=== PATIENT | male | born 1950 | race Caucasian/White ===

== ENCOUNTER 2024-05-26 11:39 | Outpatient (CLI) | payer OTHER, SELFPAY ==
--- NOTE | ~2024-05-26 | XR_ITS ---
EXAM: XR hip LT min 2V DATE: 05/26/2024 12:00 HISTORY: left hip pain with decreased ROM . COMPARISON: None available. FINDINGS: Normal mineralization. No fracture or dislocation. No lytic or blastic lesion. Severe supe rior joint space narrowing in the left hip, with extensive subchondral sclerosis and moderate subchon dral cyst formation. Mild remodeling of the femoral head. No erosion or periosteal change. Soft tissu es within normal limits. IMPRESSION: Severe left hip osteoarthritis. Reviewed, dictated and finalized at location K.
--- NOTE | ~2024-05-26 | XR_ITS ---
EXAM: XR lumbar spine 2-3V DATE: 05/26/2024 11:59 HISTORY: left lower back pain with left hip pain . COMPARISON: None available. FINDINGS: 5 nonrib-bearing lumbar-type vertebral bodies. Pedicles intact. 6 mm retrolisthesis at L1- 2. 2 mm anterolisthesis at L5-S1. Vertebral body heights preserved. Severe disc space narrowing with marginal osteophytosis at L1-2 and L5-S1, with mild narrowing at the remaining lumbar levels. Moderat e lower lumbar facet hypertrophy and sclerosis. Interspinous narrowing at nearly all lumbar levels. N o fracture or dislocation. IMPRESSION: Multilevel severe degenerative disc disease. Grade 1 listheses at L1-2 and L5-S1. Multile wagner moderate facet arthropathy with interspinous narrowing. Reviewed, dictated and finalized at location K. IMPRESSION: Multilevel severe degenerative disc disease. Grade 1 listheses at L 1-2 and L5-S1. Multilevel moderate facet arthropathy with interspinous narrowin g.
== END 2024-05-26 11:40 | disposition home or self-care (01) ==
LOC: MICIMG 11:40
PROVIDERS: PCP Family Medicine Adolescent Medicine; Visit Provider Family Medicine Adolescent Medicine
DX: M51.360 Other intervertebral disc degeneration, lumbar region with discogenic back pain only (principal); M43.17 Spondylolisthesis, lumbosacral region; M43.16 Spondylolisthesis, lumbar region; M47.816 Spondylosis without myelopathy or radiculopathy, lumbar region; M17.12 Unilateral primary osteoarthritis, left knee; M25.562 Pain in left knee
CPT/HCPCS: 72100; 73502; 73562

== ENCOUNTER 2024-07-14 10:10 | Outpatient (CLI) | payer OTHER, SELFPAY ==
--- NOTE | 2024-07-14 10:42 | ECG_ITS ---
Test Date: 2024-07-14 10:52:13 Measurements Intervals [place] Rate: 65 P: 17 VA: 182 QRS: -6 QRSD: 90 T: -4 QT: 398 QTc: 416 Interpretive Statements SINUS RHYTHM INCOMPLETE RIGHT BUNDLE BRANCH BLOCK NONSPECIFIC ST AND T WAVE ABNORMALITY No previous ECG available for comparison Electronically Signed On 07-14-2024 14:45:03 CLOCK AND WATCH HANDS PAINTER by Naya Mathews M.D.
[2024-07-14 11:04] LABS: Albumin Level 4.2 g/dL (3.5-5.1); Estimated Glomerular Filt Rate > 60
== END 2024-07-14 10:11 | disposition home or self-care (01) ==
PROVIDERS: PCP Family Medicine Adolescent Medicine; Visit Provider Orthopaedic Surgery
DX: M16.12 Unilateral primary osteoarthritis, left hip (principal); I10 Essential (primary) hypertension; R94.31 Abnormal electrocardiogram [ECG] [EKG]
CPT/HCPCS: 36415; 82040; 82565; 93005

== ENCOUNTER 2024-09-15 13:45 | Outpatient (CLI) | payer OTHER, SELFPAY ==
--- OUTSIDE RECORDS SUMMARY | 2024-09-15 13:52 | XMS_ITS | Clinical Summary ---
Author Organization [address] Address [address] [place] [phone] Care Team Providers Care Bookkeeping Teacher Name Role Phone Saúl Michele MD Primary Care Prov ider Allergies No known active allergies Medications esomeprazole DR (NexIUM) 40 mg capsule Take 1 capsule (40 mg total) by mouth 2 (two) times a day 4 Active meloxicam (MOBIC) 15 mg tablet 15 MG ORALLY DAILY 4 Active albuterol-budes onide 90-80 mcg/actuation HFA aerosol inhaler Inhale Active amLODIPine (NORVASC) 5 mg tablet Take 1 tablet (5 mg total) by mouth daily Active atorvastatin (LIPITOR) 10 mg tablet Take 1 tablet (10 mg total) by mouth daily Active azelastine-flut icasone 137-50 mcg/spray spray,non-aeros ol Administer into affected nostril(s) Active fluticasone propionate (FLONASE) 50 mcg/actuation nasal spray Administer 1 spray into each nostril daily Active aspirin 325 mg enteric coated tablet Take 1 tablet (325 mg total) by mouth daily Active magnesium oxide (MAG-OX) 250 mg (150.8 mg elemental) tabletIndicatio ns:hypomagnesem ia 1 tablet (250 mg total) daily Active fexofenadine (NAZIA) 180 mg tablet Take 1 tablet (180 mg total) by mouth daily Active clobetasoL-emol lient 0.05 % topical foam Apply topically 2 (two) times a day Active benzonatate (TESSALON) 200 mg capsuleIndicati ons:COVID-19 Take 1 capsule (200 mg total) by mouth 3 (three) times a day as needed for cough 30 capsule 06/13/202 4 Active Active Problems No known active problems Social History Tobacco Use Types Packs/Day Years Used Date Smoking Tobacco: Never Assessed Sex and Gender Information Value Date Recorded Sex Assigned at Not on file Legal Sex Male 5:04 PM CDT Gender Identity Not on file Sexual Orientation Not on file Obstetrics History Last Filed Vital Signs Vital Sign Reading Time Taken Comments Blood Pressure 122/70 01/08/2024 7:08 PM CDT Pulse 114 01/08/2024 7:08 PM CDT Temperature 37.5 C (99.5 F) 01/08/2024 7:08 PM CDT Respiratory Rate 20 01/08/2024 7:08 PM CDT Oxygen Saturation 98% 01/08/2024 7:08 PM CDT Inhaled Oxygen Concentration - - Weight 84.8 kg (187 lb) 01/08/2024 7:08 PM CDT Height 175.3 cm (5' 9 ) 01/08/2024 7:08 PM CDT Body Mass Index 27.62 01/08/2024 7:08 PM CDT Plan of Treatment Health Maintenance Due Date Last Done Comments Colon Cancer Screening-Colonoscopy 1950 Depression Screening 1948 Fall Risk Assessment 1948 Hepatitis C Screening 1948 DTaP/Tdap/Td Vaccine (1 - Tdap) 10/18/1959 Hepatitis B Screening 1966 Zoster Vaccine (1 of 2) 1998 Abdominal Aortic Aneurysm (AAA) Screen 2013 Pneumococcal vaccine 65+ (1 of 1 - PCV) 2013 Well Visit 65+ 2013 Influenza Vaccine (#1) 2024 05/26/2023 Insurance [facility] Care Teams Bookkeeping Teacher Relationship Specialty Start Date End Date Saúl Michele MD [address] [place] [address] PCP - General Family Medicine 01/08/24
--- OUTSIDE RECORDS SUMMARY | 2024-09-15 13:52 | XMS_ITS | Referral Summary ---
Author Organization [address] Address [address] [place] [phone] Care Team Providers Care Shower Screen Installer Name Role Phone Saúl Michele MD Primary [...] on file Sexual Orientation Not on file Last Filed Vital Signs Vital Sign Reading [...] 01/08/2024 7:08 PM CDT Plan of Treatment Not on file Insurance [facility] Care Teams Shower Screen Installer Relationship Specialty Start Date End Date Saúl Michele MD [address] [place] [address] PCP - General Family Medicine 01/08/24
[2024-09-15 15:22] LABS: Basophils Absolute Auto 0.1 K/mm3 (0.0-0.1); Eosinophils Absolute Auto 0.2 K/mm3 (0-0.3); Eosinophils Percent Auto 1.7 % (0-4.4); Hematocrit 47.7 % (42.0-52.0); Hemoglobin 15.5 g/dL (14.0-18.0); Immature Granulocyte Absolute 0.03 K/mm3 (0.00-0.031); Immature Granulocyte Percent A 0.3 % (0-0.5); Lymphocytes Absolute Auto 3.13 K/mm3 (0.9-3.2); Lymphocytes Percent Auto 31.4 % (18.3-44.2); Mean Corpuscular HGB Conc 32.5 g/dl (32-36); Mean Corpuscular Hemoglobin 31.2 pg (26-34); Mean Platelet Volume 9.9 fl (7.4-10.4); Monocytes Absolute Auto 0.8 K/mm3 (0.1-0.6); Neutrophils Absolute Auto 5.7 K/mm3 (1.3-6.7); Neutrophils Percent Auto 57.6 % (45.5-73.1); Platelet Count Result 255 k/mm3 (150-375); Red Blood Count 4.97 M/mm3 (4.6-6.20); Red Cell Distribution Width 12.6 % (11.5-14.5)
[2024-09-15 15:32] LABS: Urine Cotinine NEGATIVE
[2024-09-15 15:48] LABS: Albumin Level 4.3 g/dL (3.5-5.1); Estimated Glomerular Filt Rate > 60; Glucose 96 mg/dL (65-110)
[2024-09-15 16:45] LABS: MRSA (PCR) NOT DETECTED (NOT DETECTE)
[2024-09-15 19:07] LABS: Hemoglobin A1C 5.8 % (<5.7)
== END 2024-09-15 13:46 | disposition home or self-care (01) ==
PROVIDERS: PCP Family Medicine Adolescent Medicine; Visit Provider Orthopaedic Surgery
DX: Z01.812 Encounter for preprocedural laboratory examination (principal); M16.12 Unilateral primary osteoarthritis, left hip
CPT/HCPCS: 80307; 82040; 82565; 82947; 83036; 85025; 87641

== ENCOUNTER 2024-10-07 00:19 | Day surgery (SDC) | payer OTHER, SELFPAY ==
--- NOTE | 2024-09-15 13:46 | PC.NURSE ---
Report to the Outpatient Waiting Room, entrance under the green pavilion located off [facility], at time _8 AM on date __10/07/24 . Planned Procedure Time: __10 AM .? Time changes happen often and if your time is changed the preop area will call you the afternoon before. - You and your visitor will be asked to self-screen and do not enter if you have any COVID symptoms. Please call surgeon if you need to reschedule. - A mask is optional within the hospital at this time. Patients may have clear liquids (water, carbonated beverages, clear teas, apple juice) until 3 hours prior to surgery ( 7 AM) with a maximum of 20 ounces. - No food from midnight until time of surgery and no smoking, or chewing tobacco (or any form of nicotine). No chewing gum, candy or mints. - Take only the following medications with a SIP of water on the morning of surgery: ___INHALER IF NEEDED DO NOT STOP ANY OF YOUR OTHER PRESCRIPTION MEDICATIONS PRIOR TO SURGERY EXCEPT THE FOLLOWING Hold all vitamins and supplements for 3 days per anesthesiologist. Medications to discontinue per physician __PT STATES HOLD_ASPIRIN , MELOXICAM___AND ALL VITAMINS AND SUPPLEMENTS 7 DAYS PRE OP PER DR HOUSE MAY TAKE TYLENOL IF NEEDED FOR PAIN Date to take last dose____09/29/24 Please no make-up, nail faroese, hairspray, perfume, deodorant, or body powder the day of surgery.? No jewelry (including any body piercings) or valuables the day of surgery, leave them at home.? Please take a shower or bath the night before, or the morning of, surgery with an antibacterial soap.? Wear comfortable, loose fitting clothing.? Children are encouraged to wear pajamas. - Jewelry must be removed prior to entering the operating room.? Rings and piercings that are not removed may be cut off. - The hospital will not accept responsibility for valuables.? - Please leave all valuables, including medications, at home the day of surgery. If you are going home after surgery, a licensed tow car driver must drive you home.? - NO public transportation without another adult if you receive anesthesia. - We recommend that an adult stay with you for 24 hours following discharge. - We also recommend that you do not drive, make important decision, drink alcoholic beverages, or take any drugs that were not prescribed by your health care provider for at least 24 hours after your discharge time. Follow any additional instructions given to you from your surgeon. VERBAL AND WRITTEN instructions given to __PATIENT AND WIFE and asked if any additional questions and then verbalized understanding. Patient advised to call surgeon office or pre surgery nurse liaison [phone] if any additional questions.
[2024-09-15 13:53] VITALS: BMI 28.0
[2024-09-15 14:43] VITALS: BP 176/81; PULSE 88; RESP 18; TEMP 36.8; O2SAT 100
[2024-10-07] VITALS (14 sets, daily range): BP systolic 121–160; BP diastolic 64–91; PULSE 68–95; RESP 12–20; TEMP 36.4–36.9; O2SAT 95–100; BMI 27.0
--- NOTE | ~2024-10-07 | XR_ITS ---
EXAMINATION: XR hip LT min 2V DATE: 10/07/2024 13:49 INDICATION: Total left hip arthroplasty. Postop. TECHNIQUE: 2 views of left hip were obtained. COMPARISON: Left hip radiographs 09/13/2024 FINDINGS: There is a total left hip arthroplasty in near-anatomic alignment. No fracture. There is ga s in the knee joint and soft tissues, consistent with recent surgery. IMPRESSION: 1. Total left hip arthroplasty in near-anatomic alignment. Reviewed, dictated and finalized at location B.
--- OUTSIDE RECORDS SUMMARY | 2024-10-07 00:23 | XMS_ITS | Referral Summary ---
Author Organization [address] Address [address] [place] [phone] Care Team Providers Care Licensed Optical Dispenser Name Role Phone Saúl Michele MD Primary [...] Plan of Treatment Not on file Insurance [facility] Care Teams Licensed Optical Dispenser Relationship Specialty Start Date End Date Saúl Michele MD [address] [place] [address] PCP - General Family Medicine 01/08/24
--- OUTSIDE RECORDS SUMMARY | 2024-10-07 00:23 | XMS_ITS | Clinical Summary ---
Author Organization [address] Address [address] [place] [phone] Care Team Providers Care Rehabilitation Physician Name Role Phone Saúl Michele MD Primary [...] - Tdap) 10/18/1959 Hepatitis B Screening 1966 Pneumococcal vaccine 65+ (1 of 1 - PCV) 1998 Zoster Vaccine (1 of 2) 1998 Abdominal Aortic Aneurysm (AAA) Screen 2013 Well Visit 65+ 2013 Influenza Vaccine (#1) 2024 05/26/2023 Insurance [facility] Care Teams Rehabilitation Physician Relationship Specialty Start Date End Date Saúl Michele MD [address] [place] [address] PCP - General Family Medicine 01/08/24
[2024-10-07] MEDS: ACETAMINOPHEN 500 MG TABLET 1000 MG PO (08:47)
[2024-10-07] MEDS: LACTATED RINGERS 1,000 ML 30 ML IV CONT ×2 (08:47→13:15)
--- NOTE | 2024-10-07 09:35 | P.PNAN_ITS ---
Anes - Initial Pre Proc Eval Procedure: Operation Date: 10/07/24 10:00 Proposed Procedures p Left Total Hip Arthroplasty - Iglesia To MD Date/Time: 10/07/24 09:35 Surgeon: Iglesia To MD Pre Op Diagnosis: primary oa left hip Patient Data Age: 73 Gender: M Height: 1.75 m Weight: 83 kg Last Vital Signs Temp 36.5 C 10/07/24 09:22 Pulse 73 10/07/24 09:22 Resp 16 10/07/24 09:22 BP 147/72 H 10/07/24 09:22 Pulse Ox 99 10/07/24 09:22 O2 Del Method Room Air 10/07/24 09:22 Allergies Allergy/AdvReac Type Severity Reaction Status Date / Time No Known Allergies Allergy Verified 10/07/24 09:07 Home Medications ?Medication ?Instructions ?Recorded ?Confirmed ?Type aspirin 325 mg tablet 325 mg PO .4PM 12/15/20 10/07/24 History atorvastatin 10 mg tablet 10 mg PO .4PM 12/15/20 10/07/24 History azelastine 137 mcg-fluticasone 50 1 spray intranasal .PRN 12/15/20 10/07/24 History mcg spray,susp-NaCl 0.9% spray nasal fluticasone propionate 50 2 spray intranasal DAILY 03/12/22 10/07/24 History mcg/actuation nasal spray,suspension (Allergy Relief (fluticasone)) clobetasol-emollient 0.05 % 1 applic topical .PRN 07/07/23 09/15/24 History topical foam fexofenadine 60 mg tablet 180 mg PO .4PM 07/07/23 10/07/24 History magnesium 250 mg tablet 250 mg PO .4PM 07/07/23 10/07/24 History bagyoshf-hac-kaaoe acid 0.4 1 tablet PO .4PM 07/07/23 10/07/24 History mg-lycopene 300 mcg-lutein 250 mcg tablet (Complete Multivitamin Adult 50 Plus) albuterol 90 mcg/actuation aerosol 90 mcg inhalation QID PRN 05/26/24 10/07/24 History inhaler shortness of breath amlodipine 5 mg tablet 10 mg PO .4PM 08/10/24 10/07/24 History esomeprazole magnesium 40 mg 80 mg PO .4PM 09/15/24 10/07/24 History capsule,delayed release meloxicam 15 mg tablet 15 mg PO .4PM 09/15/24 10/07/24 History vit A 9,650 unit-vit C 195 mg-vit 1 cap PO .4PM 09/15/24 10/07/24 History E 95 ouur-mcbpug-efph-zn-copy camera operator capsule oxycodone-acetaminophen 5 mg-325 1 - 2 tablet PO Q4-6H PRN pain 7 10/07/24 Rx mg tablet days #30 tabs Laboratory Tests 10/07/24 08:37 Blood Type O Positive Antibody Screen Negative Patient hx anesthesia problems: none Family hx anesthesia problems: none Results Review: All pre-operative results and documents have been reviewed as part of the pre- operative evaluation. [facility] Past Medical History Medical History (Updated 10/07/24 @ 09:36 by Prince Rosen MD) GERD (gastroesophageal reflux disease) Hypertension Overweight (BMI 25.0-29.9) Rectal polyp (~2010) Gastric polyp History of colon polyps Surgical History Surgical History H/O hernia repair (~1950) Family History Family History Father Alzheimers disease Dementia Malignant neoplasm of prostate Mother Dementia Hypertension Diverticulitis Grandparent Cerebrovascular accident Other Colon polyp Social History Social History Smoking status: Never smoker Second hand tobacco smoke exposure: No Additional smoking assessment comments: DENIES ANY FORM OF TOBACCO USE Alcohol intake: current Alcohol use details: social Substance use: never Substance use type: does not use Do You Feel Safe in your Home?: Yes Lack of Transportation: No Lack of Food: Never True Current Housing: I Have Housing Concerned About Future Housing: No Difficulty Paying Gas/Electric Bills: No Difficulty Paying for Meds: No Currently Unemployed: No Education: High School Diploma/GED Difficulty w/ Childcare or Family Care: No Living arrangements: with family Occupation/Education: retired Gender identity (if verbalized by the patient): Male Spiritual care concerns: No Agree to blood products: Yes Anes - Eval Final PreProcedure Day of Procedure 10/07/24 09:35 Patient weight: overweight Heart: regular rate and rhythm Lungs: clear to auscultation Airway: Mallampati scale class II Neurological: alert and oriented Last oral intake: >/= 8 hours ASA classification: II Emergent: no Anesthetic plan: proceed Anesthesia type and monitoring: general ETT and standard monitoring Results Review: All pre-operative results and documents have been reviewed as part of the pre- operative evaluation. Informed Consent: The patient's anesthetic plan and its attendant risks and benefits were discussed with the patient/family/POA. Questions were solicited and answers provided to the satisfaction of the patient/family/POA.
[2024-10-07] MEDS: TRANEXAMIC ACID 1,000MG/ISO100 1,000 MG/100 ML BAG 200 MG IVPB (09:37)
--- NOTE | 2024-10-07 09:55 | WPDHPUPDATE1 ---
History and Physical Update Update Date/Time: 10/07/24 09:55 History and Physical has been reviewed, including an updated exam of the patient. There are NO changes in the patient's condition. Risks, benefits, and alternatives have been discussed and questions answered. Patient agrees to proceed with procedure.
[2024-10-07] MEDS: ceFAZolin 2 GM/D5W 50 ML 2 GM/50 ML BAG IVPB ×2 (11:31→18:25)
[2024-10-07] MEDS: SODIUM CHLORIDE 0.9% IV 37.7 ML, MORPHINE SULFATE INJ (*CRX) 2 MG, ROPivacaine HCL 1% 2... INFILTRATE (11:31)
[2024-10-07] MEDS: TRANEXAMIC ACID 1,000 MG/10 ML AMPUL 1000 MG IV PUSH (11:40)
--- NOTE | 2024-10-07 13:42 | P.OP_ITS ---
Procedure Note - Detailed Date of Procedure 10/07/24 Pre-op Diagnosis Left hip degenerative arthritis. Post-op Diagnosis Same Procedure Performed Left Total Hip Arthroplasty Surgeon Iglesia To MD Air Plant Engineer Faby Vance PA-C Anesthesia General Findings Good bone quality. Direct superior approach. Description of Procedure The patient was given preoperative antibiotics. A general anesthetic was administered. The patient was carefully placed in the lateral decubitus position on the PEG board. The shoulders and hips were carefully positioned for component and leg length positioning reference. The hip was prepped and draped in the usual sterile fashion. A longitudinal incision was created over the posterior aspect of the greater trochanter. Careful dissection was brought down through the deep fascia with electrocautery. The direct superior approach to the hip was performed. The gluteus krissy fibers were split in line with their fibers. The conjoined tendon of the piriformis and obturator internus was removed from the femur and reflected. The sciatic nerve was protected. The capsulotomy was begun at the femur inferiorly along the neck and carried proximally. The capsule was elevated posteriorly inferior and posterior superior. The hip was dislocated. The femoral neck was cut according to preoperative templating measured from the center of the femoral head. The femoral head was removed. The femoral head was removed. The acetabulum was carefully exposed. The inferior capsule was released. The labrum was resected. The acetabulum was sequentially reamed to the intended cup size. The cup was impacted into position with excellent press-fit. Typical anatomic landmarks, including the bony contact points as well as the inferior transverse acetabular ligament were used to confirm cup positioning with preoperative templating. Attention was turned to the femur, which was carefully exposed. The hip was reamed and then broached sequentially. Excellent press-fit was obtained with the broach. The hip was trialed. Measurements were utilized, including the lesser trochanter as well as the center of the femoral head and the tip of the trochanter, and excellent assessment of the offset and leg lengths were confirmed. The real component was impacted into position. Trialing confirmed appropriate leg length and offset with soft tissue balancing as well apparent feel of the leg, both at the knee and the heel. Soft tissues were assessed using the the iliotibial band. Reduction of the posterior capsule and external rotators were also used as a secondary assessment. The hip was copiously irrigated with pulsatile lavage periodically throughout the procedure. The real components were then assembled and reduced. The hip was stable throughout typical maneuvers, including extension, external rotation to 70 degrees, the position of sleep as well as flexion to 90 degrees with internal rotation past 35 degrees. The shake test confirmed stability without impingement. Osteophytes were removed as necessary. The short external rotators and capsule were repaired back to the posterior trochanter through drill holes. The deep fascia was repaired with running number 2 barbed suture, followed by 2-0 Stratafix suture and 3-0 Stratafix suture in the dermis. Steri-Strips were placed on the skin, followed by a sterile occlusive dressing. There were no complications. Meticulous hemostasis was maintained with the AquaMantys device. The patient was brought to the recovery room in stable condition. There were no complications. Physician library technical assistant, Faby Vance PA-C, required for surgery; including patient positioning, draping, tissue retraction, maintaining instrument position, hip dislocation/ relocation, wound closure, and dressing placement. Implants The Strykder Insignia hip stem, high offset size 4 , was utilized with excellent press-fit. The 50 mm Trident II acetabular component was impacted with excellent press-fit stability. Standard polyethylene liner the -5, 36 mm Biolox ceramic femoral head was utilized. Estimated Blood Loss 200 Drains No Packing No Pathology None sent Complications No immediate complications Condition Stable Disposition PACU [facility] Billing Surgery - Charge Forward: Surgery Billing
[2024-10-07] MEDS: fentaNYL CITRATE INJ (*CRX) 100 MCG/2 ML VIAL 25 MCG IV PUSH ×2 (13:56→14:05)
--- NOTE | 2024-10-07 15:15 | ADMGEN ---
This patient, Amador Avalos, was admitted to Medical Room 260-. Patient/family oriented to hospital policies and general routines including ID bracelet, bed and alarms, visiting hours, pain management, procedures, bathroom and other care routines, personal items, smoking policy, room service/diet, and visiting hours. Information on how to activate the Rapid Response Team has been discussed. Patient/Family are encouraged to report perceived risks to care and to ask questions if they do not understand what they are told or what they should do.
[2024-10-07] MEDS: SODIUM CHLORIDE 0.9% IV 1,000 ML 125 ML IV CONT (15:34)
[2024-10-07] MEDS: amLODIPine BESYLATE 10 MG TABLET PO (15:45)
[2024-10-07] MEDS: MELOXICAM 7.5 MG TABLET PO (15:45)
[2024-10-07] MEDS: ATORVASTATIN 10 MG TABLET PO (15:45)
[2024-10-07] MEDS: ASPIRIN 325 MG TABLET PO (15:45)
[2024-10-07] MEDS: SENNA/DOCUSATE SODIUM TABLET 2 TAB PO (15:45)
[2024-10-07] MEDS: ACETAMINOPHEN 325 MG TABLET 650 MG PO ×2 (17:21→23:23)
[2024-10-07] MEDS: oxyCODONE/ACETAMINOPHEN (*CRX) 5-325 MG TABLET 1 TABLET PO (17:21)
[2024-10-07] MEDS: FAMOTIDINE 20 MG TABLET PO (21:13)
[2024-10-07] MEDS: oxyCODONE/ACETAMINOPHEN (*CRX) 10-325 MG TABLET 1 TAB PO (21:13)
[2024-10-08 00:16] VITALS: BP 145/61; PULSE 74; RESP 20; TEMP 36.5; O2SAT 96
[2024-10-08] MEDS: SODIUM CHLORIDE 0.9% IV 1,000 ML 125 ML IV CONT (00:38)
[2024-10-08] MEDS: ceFAZolin 2 GM/D5W 50 ML 2 GM/50 ML BAG IVPB ×2 (03:30→11:04)
[2024-10-08 04:38] VITALS: BP 143/69; PULSE 73; RESP 20; TEMP 36.7; O2SAT 97
[2024-10-08 05:14] LABS: Basophils Percent Auto 0.1 % (0.2-1.2); Hematocrit 39.7 % (42.0-52.0); Hemoglobin 13.5 g/dL (14.0-18.0); Immature Granulocyte Absolute 0.07 K/mm3 (0.00-0.031); Immature Granulocyte Percent A 0.4 % (0-0.5); Lymphocytes Absolute Auto 1.54 K/mm3 (0.9-3.2); Lymphocytes Percent Auto 9.4 % (18.3-44.2); Mean Corpuscular Hemoglobin 32.1 pg (26-34); Mean Corpuscular Volume 94.3 fl (80-100); Mean Platelet Volume 9.6 fl (7.4-10.4); Monocytes Absolute Auto 1.1 K/mm3 (0.1-0.6); Monocytes Percent Auto 6.7 % (2.6-8.5); Neutrophils Absolute Auto 13.7 K/mm3 (1.3-6.7); Neutrophils Percent Auto 83.4 % (45.5-73.1); Platelet Count Result 209 k/mm3 (150-375); Red Blood Count 4.21 M/mm3 (4.6-6.20); Red Cell Distribution Width 12.7 % (11.5-14.5); White Blood Count 16.5 K/mm3 (4.5-10.0)
[2024-10-08] MEDS: ACETAMINOPHEN 325 MG TABLET 650 MG PO ×2 (05:21→11:12)
[2024-10-08 05:27] LABS: Anion Gap 8 mmol/L (4-12); Blood Urea Nitrogen 16 mg/dL (9-20); Calcium 8.7 mg/dL (8.4-10.2); Carbon Dioxide 23 mmol/L (22-30); Chloride 106 mmol/L (98-107); Estimated CRCL calculation 62 ml/min; Estimated Glomerular Filt Rate > 60; Glucose 130 mg/dL (65-110); Potassium 3.9 mmol/L (3.4-5.0); Sodium 137 mmol/L (137-145)
[2024-10-08 08:34] VITALS: BP 151/68; PULSE 80; RESP 16; TEMP 37.1; O2SAT 97
[2024-10-08] MEDS: oxyCODONE/ACETAMINOPHEN (*CRX) 10-325 MG TABLET 1 TAB PO (09:32)
[2024-10-08] MEDS: FLUTICASONE PROPIONATE 0.05% NA SPR 16 GM BTL (*BKC) 2 SPRAY NASAL (09:32)
[2024-10-08] MEDS: polyethylene glycoL 3350 17 GM POWD.PACK PO (09:32)
[2024-10-08] MEDS: FAMOTIDINE 20 MG TABLET PO (09:33)
[2024-10-08] MEDS: MELOXICAM 7.5 MG TABLET PO (09:33)
[2024-10-08] MEDS: SENNA/DOCUSATE SODIUM TABLET 2 TAB PO (09:33)
[2024-10-08 11:52] VITALS: BP 143/69; PULSE 80; RESP 16; TEMP 36.6; O2SAT 97
== END 2024-10-08 12:32 | disposition home or self-care (01) ==
LOC: ANHSURGERY 07:52 → ANH2MED 14:55
PROVIDERS: Physician Assistant Surgical; PCP Family Medicine Adolescent Medicine; Visit Provider Orthopaedic Surgery
PROC: (CPT 27130; principal; 2024-10-07 10:00)
DX: M16.12 Unilateral primary osteoarthritis, left hip (principal); I10 Essential (primary) hypertension; E78.5 Hyperlipidemia, unspecified; K21.9 Gastro-esophageal reflux disease without esophagitis; Z79.82 Long term (current) use of aspirin; Z79.899 Other long term (current) drug therapy
CPT/HCPCS: 27130; 36415; 73502; 80048; 85025; 86850; 86900; 86901; 97110; 97116; 97161; 97165; 97535; A9270; C1776; J0171; J0690; J1100; J1885; J2003; J2270; J2405; J2704; J2795; J3010; J7030; J7120

== ENCOUNTER 2024-11-26 13:15 | Outpatient (CLI) | payer OTHER, SELFPAY ==
--- NOTE | ~2024-11-26 | XR_ITS ---
AP view of the pelvis and AP and lateral views of the left hip Clinical history: Arthroplasty Findings: No acute fracture or dislocation is seen. Left hip arthroplasty in place. Right hip joint i ntact. Soft tissues are unremarkable. Impression: No acute abnormality is seen. Left hip arthroplasty intact. Reviewed, dictated and finalized at location . Impression: No acute abnormality is seen. Left hip arthroplasty intact.
--- OUTSIDE RECORDS SUMMARY | 2024-11-27 13:50 | XMS_ITS | Clinical Summary ---
Author Organization [address] Address [address] [place] [phone] Care Team Providers Care Golf Club Head Former Name Role Phone Saúl Michele MD Primary [...] Health Maintenance Due Date Last Done Comments Depression Screening 1948 Fall Risk Assessment 1948 Hepatitis C Screening 1948 DTaP/Tdap/Td Vaccine (1 - Tdap) 10/18/1959 Hepatitis B Screening 1966 Pneumococcal vaccine 65+ (1 of 1 - PCV) 1998 Zoster Vaccine (1 of 2) 1998 Well Visit 65+ 2013 Influenza Vaccine (#1) 2024 05/26/2023 Insurance [facility] Care Teams Golf Club Head Former Relationship Specialty Start Date End Date Ryne, Saúl Александр, MD [address] [place] [address] PCP - General Family Medicine 01/08/24
--- OUTSIDE RECORDS SUMMARY | 2024-11-27 13:50 | XMS_ITS | Referral Summary ---
Author Organization [address] Address [address] [place] [phone] Care Team Providers Care Aquatic Ecologist Name Role Phone Saúl Michele MD Primary [...] Plan of Treatment Not on file Insurance [facility] Care Teams Aquatic Ecologist Relationship Specialty Start Date End Date Saúl Michele MD [address] [place] [address] PCP - General Family Medicine 01/08/24
== END 2024-11-26 13:16 | disposition home or self-care (01) ==
PROVIDERS: PCP Family Medicine Adolescent Medicine; Visit Provider Orthopaedic Surgery
DX: Z47.1 Aftercare following joint replacement surgery (principal); Z96.642 Presence of left artificial hip joint
CPT/HCPCS: 73502